=== PATIENT | male | born 1975 | race Two or more races ===

== ENCOUNTER → 2016-07-01 | Outpatient (CLI) | payer OTHER | END | disposition home or self-care (01) | LOC: CFH 11:31 | PROVIDERS: ATTEND Nurse Practitioner Family | DX: M47.897 Other spondylosis, lumbosacral region (principal); M48.07 Spinal stenosis, lumbosacral region; M25.859 Other specified joint disorders, unspecified hip | CPT/HCPCS: 72110 ==